=== PATIENT | female | born 1985 | race American Indian/Alaskan Native ===

== ENCOUNTER 2019-03-26 10:05 | Emergency (ER) | payer SELFPAY ==
[2019-03-26 10:10] VITALS: BP 135/72
[2019-03-26] MEDS ORDERED: HYDROcodone/ACETAMINOPHEN 5-325 MG TAB PO ONE (11:09)
[2019-03-26] MEDS ORDERED: KETOROLAC 30 MG/1 ML INJ IM ONE (11:09)
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
== END 2019-03-26 11:35 | disposition home or self-care (01) ==
LOC: ED 10:05
DX: S39.012A Strain of muscle, fascia and tendon of lower back, initial encounter (principal); Z79.899 Other long term (current) drug therapy; X50.0XXA Overexertion from strenuous movement or load, initial encounter; Y93.89 Activity, other specified; Y92.89 Other specified places as the place of occurrence of the external cause; Y99.8 Other external cause status
CPT/HCPCS: 96372; 99282; J1885

== ENCOUNTER 2019-03-29 10:27 | Emergency (ER) | payer SELFPAY ==
[2019-03-29 10:33] VITALS: BP 141/72
--- NOTE | 2019-03-29 11:24 | Emergency Department Report ---
ED Back Pain/Injury HPI - General Chief Complaint: Pain General Stated Complaint: LOWER BACK/LFT SIDE PAIN Time Seen by Provider: 03/29/19 11:06 Source: patient Limitations: No Limitations - History of Present Illness Initial Comments: Very pleasant 33-year-old female presents the emergency department for evaluation of her low back pain. As well as left shoulder pain. Patient reports she's had low back pain for "years" but has noted over the past few weeks it has gotten worse. She was seen in the emergency department recently and given cyclobenzaprine, hydrocodone and ibuprofen but has not had any relief in her symptoms. She reports the pain in her back is across the lower back but worse in the left side and radiates into the left buttocks. 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 She also reports left shoulder pain and she points to the scapula. Her pain is aggravated when she reaches 90 or above. Pain is described as a dull aching Nicolasa 10 in severity sharp pain when she lifts her arm above 90. She denies any past medical history, current medication use other than as listed above for known allergies to medications. She denies injuries that she can recall. She denies any saddle anesthesia, urinary or bowel incontinence, urinary retention, fever, chills, night sweats, headache, dizziness, blurry vision, chest pain, shortness of breath or any other associated symptoms. - Related Data Previous Rx's Medication Instructions Recorded Last Taken Type HYDROcodone/APAP 5-325 [[place] 1 each PO Q6HR PRN #10 tablet 03/26/19 Unknown Rx 5/325] Methocarbamol [Robaxin] 500 mg PO Q6HR #20 tablet 03/29/19 Unknown Rx methylPREDNISolone [Medrol 4MG 4 mg PO ONCE #1 tab.ds.pk 03/29/19 Unknown Rx DOSEPAK (21 tabs)] Allergies Allergy/AdvReac Type Severity Reaction Status Date / Time No Known Allergies Allergy Unverified 03/26/19 10:06 ED Review of Systems ROS: Stated complaint: LOWER BACK/LFT SIDE PAIN Other details as noted in HPI Comment: All other systems reviewed and negative Constitutional: denies: chills, fever Eyes: denies: eye pain, eye discharge, vision change ENT: denies: ear pain, throat pain Respiratory: denies: cough, shortness of breath, wheezing Cardiovascular: denies: chest pain, palpitations Endocrine: no symptoms reported Gastrointestinal: denies: abdominal pain, nausea, diarrhea Genitourinary: denies: urgency, dysuria, discharge Musculoskeletal: as per HPI, back pain, arthralgia. denies: joint swelling Skin: denies: rash, lesions Neurological: denies: headache, weakness, paresthesias Psychiatric: denies: anxiety, depression Hematological/Lymphatic: denies: easy bleeding, easy bruising ED Past Medical Hx - Past Medical History Previous Medical History?: No - Surgical History Past Surgical History?: Yes Additional Surgical History: C SECTION - Social History Smoking Status: Never Smoker Substance Use Type: None - Medications Home Medications: Home Medications Medication Instructions Recorded Confirmed Last Taken Type HYDROcodone/APAP 5-325 [[place] 1 each PO Q6HR PRN #10 tablet 03/26/19 Unknown Rx 5/325] Methocarbamol [Robaxin] 500 mg PO Q6HR #20 tablet 03/29/19 Unknown Rx methylPREDNISolone [Medrol 4MG 4 mg PO ONCE #1 tab.ds.pk 03/29/19 Unknown Rx DOSEPAK (21 tabs)] ED Physical Exam - General Limitations: No Limitations General appearance: alert, in no apparent distress - Head Head exam: Present: atraumatic, normocephalic - Eye Eye exam: Present: normal appearance, PERRL, EOMI Pupils: Present: normal accommodation - ENT ENT exam: Present: normal exam, mucous membranes moist, TM's normal bilaterally - Neck Neck exam: Present: normal inspection, full ROM. Absent: tenderness, meningismus, lymphadenopathy - Respiratory Respiratory exam: Present: normal lung sounds bilaterally. Absent: respiratory distress, wheezes, rales, rhonchi, stridor - Cardiovascular Cardiovascular Exam: Present: regular rate, normal rhythm, normal heart sounds. Absent: systolic murmur, diastolic murmur, rubs, gallop - GI/Abdominal GI/Abdominal exam: Present: soft, normal bowel sounds. Absent: distended, tenderness, guarding, rebound, rigid - Extremities Exam Extremities exam: Present: normal inspection, full ROM, tenderness (there is mild tenderness to the left upper back and upper scapular area above the scapular spine as well as in the left upper trapezius. There is no pain with Hockin sign. There is pain with empty can test. There is pain with neer sign. She is able to complete Apley's maneuvers but does have some pain when lifting her arm above her head. She is normal radial pulse is normal distal sensation and capillary refill.). Absent: calf tenderness - Back Exam Back exam: Present: normal inspection, tenderness (there is mild tenderness over the left upper gluteal muscles with no midline tenderness to the lumbar spine. She has negative straight leg raise. She is able to ambulate without difficulty.). Absent: CVA tenderness (R), CVA tenderness (L) - Neurological Exam Neurological exam: Present: alert, oriented X3 - Psychiatric Psychiatric exam: Present: normal affect, normal mood - Skin Skin exam: Present: warm, dry, intact, normal color. Absent: rash ED Course Vital Signs 03/29/19 10:30 Temperature 98.4 F Pulse Rate 83 Respiratory 18 Rate Blood Pressure 141/72 O2 Sat by Pulse 97 Oximetry ED Medical Decision Making - Medical Decision Making Patient is nontoxic in no acute distress. Vitals are stable. She had no saddle anesthesia, urinary or bowel incontinence or urinary retention making conus medullaris syndrome or cauda equina syndrome unlikely. She had no fever or history of IV drug use making epidural abscess unlikely. There was no Specific injury making epidural hematoma unlikely. She had no radiating abdominal pain, pulsatile masses in her abdomen, history of smoking or vascular disease or connective tissue disease making AAA unlikely. She had reproducible muscular tenderness and she was able to flex and extend her spine without pain and reported some pain relief with extension of her spine. I recommended increase abdominal muscle strengthening and frequent stretching for the injury muscles. Return to emergency department with any changing worsening symptoms. Orthopedic follow-up. Patient questions were answered and she verbalizes understanding of the diagnosis, treatment plan and follow-up instructions. - Differential Diagnosis HNP, strain, sprain, fracture, rotator cuff tear Critical care attestation.: If time is entered above; I have spent that time in minutes in the direct care of this critically ill patient, excluding procedure time. ED Disposition Clinical Impression: Rotator cuff arthropathy of left shoulder Acute back pain Qualifiers: Back pain location: low back pain Back pain laterality: left Sciatica presence: with sciatica Sciatica laterality: sciatica of left side Qualified Code(s): M54.42 - Lumbago with sciatica, left side Disposition: -01 TO HOME OR SELFCARE Is pt being admited?: No Condition: Stable Instructions: Acute Low Back Pain (ED), Rotator Cuff Tendinitis (ED) Prescriptions: methylPREDNISolone [Medrol 4MG DOSEPAK (21 tabs)] 4 mg PO ONCE #1 tab.ds.pk Methocarbamol [Robaxin] 500 mg PO Q6HR #20 tablet Forms: Work/School Release Form(ED) Time of Disposition: 11:29
== END 2019-03-29 12:17 | disposition home or self-care (01) ==
LOC: ED 10:27
DX: M54.5 Low back pain (principal); M12.812 Other specific arthropathies, not elsewhere classified, left shoulder; Z79.899 Other long term (current) drug therapy

== ENCOUNTER 2019-05-02 18:07 | Emergency (ER) | payer SELFPAY ==
[2019-05-02 18:55] VITALS: BP 125/77
--- NOTE | 2019-05-02 18:56 | Event Note ---
ED Screening Note ED Screening Note: couple days ago states she was playing with her dogs c/o right hand pain wrestling around with the dogs pushed the dogs away states she had pain in her ring finger down her hand chronic right elbow pain no numbness or weaknes PMHx none no allergies to meds
--- NOTE | 2019-05-02 18:59 | Emergency Department Report ---
Chief Complaint: Extremity Injury, Upper Stated Complaint: RUE HAND/ELBOW Time Seen by Provider: 05/02/19 18:51 - HPI History of Present Illness: pt is a 33 yo female who presents to the ED with c/o couple days ago states she was playing with her dogs c/o right hand pain wrestling around with the dogs pushed the dogs away states she had pain in her ring finger down her hand also having chronic right elbow pain for a few months, no fall or injury no numbness or weaknes PMHx none no allergies to meds vitals are normal on exam: no bony ttp in the right middle finger, FROM of the right digits, hand, and wrist, no snuffbox ttp, she has some discomfort with flexion of the right middle finger, FROM of each joint and ligaments of the right middle finger, no edema, no ecchymosis, no deformity, FROM of the right elbow with no difficulty or pain, no bony ttp of the right elbow, no edema, no increased warmth, no erythema, neurovascularly intact vss examination consistent with mild right middle finger sprain right elbow pain could be related bursitis or arthritis no signs of infection, septic joint, fracture, dislocation advised may take tylenol or ibuprofen as needed for discomfort. may use ice pack, heating pad, rest, epsom salt bath. may wear a finger splint or use alexandra taping while you are working or doing activities. follow up with an orthopedic doctor if symptoms are not improving. return to the emergency room for any new or worsening symptoms. medical screening examination performed, there is no threat to life or limb at this time referred to orthopedic discussed strict return precautions - Exam Vital Signs: Vital Signs 05/02/19 18:51 Temperature 98.5 F Pulse Rate 77 Respiratory 18 Rate Blood Pressure 125/77 O2 Sat by Pulse 99 Oximetry MSE screening note: Focused history and physical exam performed. ED Disposition for MSE Clinical Impression: Chronic pain of right elbow Sprain of right middle finger Qualifiers: Encounter type: initial encounter Sprain of finger site: interphalangeal joint Qualified Code(s): S63.632A - Sprain of interphalangeal joint of right middle finger, initial encounter Disposition: MED SCREENING EXAM-LEFT Is pt being admited?: No Does the pt Need Aspirin: No Condition: Stable Instructions: Elbow Bursitis (ED), Finger Sprain (ED) Additional Instructions: may take tylenol or ibuprofen as needed for discomfort. may use ice pack, heating pad, rest, epsom salt bath. may wear a finger splint or use alexandra taping while you are working or doing activities. follow up with an orthopedic doctor if symptoms are not improving. return to the emergency room for any new or worsening symptoms. Referrals: STEF DUMONT MD [Staff Physician] - 3-5 Days [facility] [Provider Group] - 3-5 Days Time of Disposition: 18:57 Print Language: ALBANIAN
== END 2019-05-02 19:26 | disposition left against medical advice (07) ==
LOC: ED 18:07
DX: S63.612A Unspecified sprain of right middle finger, initial encounter (principal); M25.521 Pain in right elbow; G89.29 Other chronic pain; X58.XXXA Exposure to other specified factors, initial encounter; Y93.72 Activity, wrestling; Y92.89 Other specified places as the place of occurrence of the external cause; Y99.8 Other external cause status
CPT/HCPCS: 99281